=== PATIENT | female | born 1965 | race Caucasian/White ===

== ENCOUNTER → 2023-11-29 11:37 | Outpatient (REF) | payer BC, SELFPAY | LOC: WDC 11:37 | PROVIDERS: ATTENDING PHYSICIAN Obstetrics & Gynecology; FAMILY PHYSICIAN Physician Assistant | DX: Z12.31 Encounter for screening mammogram for malignant neoplasm of breast (principal) | CPT/HCPCS: 77063; 77067 ==

== ENCOUNTER → 2024-12-11 12:26 | Outpatient (REF) | payer BC, SELFPAY | LOC: WDC 12:26 | PROVIDERS: ATTENDING PHYSICIAN Physician Assistant | DX: Z12.31 Encounter for screening mammogram for malignant neoplasm of breast (principal) | CPT/HCPCS: 77063; 77067 ==